=== PATIENT | female | born 1995 | race Caucasian/White ===

== ENCOUNTER 2022-01-31 22:22 | Outpatient (CLI) | payer OTHER | END 2022-02-01 00:12 | disposition home or self-care (01) | LOC: GENOP 22:22 | DX: O26.899 Other specified pregnancy related conditions, unspecified trimester (principal); R10.9 Unspecified abdominal pain; Z3A.24 24 weeks gestation of pregnancy | CPT/HCPCS: 81001; 82731; 87086; G0463 ==

== ENCOUNTER 2022-02-25 13:26 | Outpatient (CLI) | payer OTHER | END 2022-02-25 14:33 | disposition home or self-care (01) | LOC: GENOP 13:26 | DX: O47.02 False labor before 37 completed weeks of gestation, second trimester (principal); Z3A.24 24 weeks gestation of pregnancy | CPT/HCPCS: 59025 ==